=== PATIENT | female | born 1955 | race Caucasian/White ===

== ENCOUNTER → 2016-11-05 | Outpatient (CLI) | payer MEDICARE ==
[~2016-11-05] MED LIST: ALPRAZOLAM0.5 M3 PO; ASPIR 8181 MG PO; ASPIRIN 325MG325 MG PO; CELEBREX200 MG PO; DYAZIDE CAP (M1 EACH PO; FENTANYL 225 MCG/EAC TD; FLAGYL 500MG.500 MG PO; K-DUR 20MEQ TA20 MEQ PO; LEVOFLOXACIN 5500 M1 PO; METFORMIN 500M500 M1 PO; METFORMIN500 MG PO; METOPROLOL SUCC50 M1 PO; MULTIVITAMIN1 TA1 PO; MYLICON 80MG. C80 MG PO; OMEPRAZOLE40 MG PO; SERTRALINE 100100 MG PO; VISTARIL25 M1 PO; XANAX 1MG TABLET1 MG PO
--- NOTE | 2016-11-05 11:46 | RADIOLOGY REPORT PS360 ---
BONE DENSITOMETRY(HIP:LT SPINE HISTORY: PAIN IN THORACIC SPINE ORDERING PHYSICIAN: Gracia Gupta MD PATIENT AGE: 60 years COMPARISON: None FINDINGS: The BMD measured at the left femoral neck is 0.724 g/cm squared with a T score of -2.3. This is considered Osteopenic according to the World Health Organization criteria. Fracture risk is Moderate. Treatment is advised. IMPRESSION: Osteopenia. Recommend follow-up exam October 2018
== END ==
LOC: RAD 09:54
DX: M54.6 Pain in thoracic spine (principal); Z78.0 Asymptomatic menopausal state